=== PATIENT | male | born 1995 | race Caucasian/White ===

== ENCOUNTER 2024-01-09 14:26 | Outpatient (REF) | payer OTHER, SELFPAY ==
[2024-01-09 17:33] LABS: MANUAL DIFF FLAG NO
[2024-01-09 17:39] LABS: Basophils Percent Auto 0.3 % (0-2); Eosinophils Absolute Auto 0.2 X10*3/uL (0.0-0.4); Eosinophils Percent Auto 1.7 % (0-4); Hematocrit 44.7 % (42.0-52.0); Hemoglobin 15.3 g/dl (14.0-18.0); Imm Gran Abs Auto 0.04 X10*3/uL (0.00-0.03); Imm Gran Pct Auto 0.4 % (0.0-0.4); Lymphocytes Absolute Auto 1.5 X10*3/uL (1.2-4.9); Lymphocytes Percent Auto 16.5 % (20-40); Mean Corpuscular HGB Conc 34.2 g/dl (31.0-36.0); Mean Corpuscular Hemoglobin 31.2 pg (27.0-33.0); Mean Corpuscular Volume 91.2 fL (80.0-98.0); Mean Platelet Volume 11.2 fL (9.4-12.4); Monocytes Absolute Auto 0.9 X10*3/uL (0.1-1.2); Monocytes Percent Auto 9.1 % (2-11); Neutrophils Absolute Auto 6.7 x10*3/uL (2.0-8.3); Platelet Count 212 X10*3/uL (160-400); Red Cell Distribution Width 11.5 % (11.0-16.0); White Blood Count 9.3 X10*3/uL (4.8-10.8)
[2024-01-09 17:47] LABS: Appearance Urine Clear; Color Urine Yellow; Glucose Urine UA Negative (Negative); Leukocyte Esterase Urine Negative (Negative); Nitrite Urine Negative (Negative); Specific Gravity - Urine 1.015 (1.005-1.025); Urine Blood Negative (Negative); Urine Ketones Negative (Negative); Urine Protein Negative (Neg-Trace)
[2024-01-09 18:24] LABS: Alanine Aminotransferase 43 U/L (0-40); Albumin Level 4.6 g/dL (3.5-5.0); Alkaline Phosphatase 81 U/L (39-117); Anion Gap 13 (12-20); Aspartate Amino Transferase 42 U/L (5-37); Bilirubin Total 0.8 mg/dL (0.0-1.0); Blood Urea Nitrogen 17 mg/dL (9-16); C Reactive Protein 1.57 mg/dL (< or = 0.50); Calcium 9.9 mg/dL (8.4-10.2); Carbon Dioxide 27 mmol/L (22-29); Chloride 102 mmol/L (96-108); Estimated Glomerular Filt Rate > 60; Glucose Random 97 mg/dL (60-115); Iron 21 mcg/dL (45-160); Lipase 17 U/L (8-78); Percent Iron Saturation 9 % (15-50); Potassium 3.7 mmol/L (3.3-5.1); Sodium 138 mmol/L (135-145); Total Iron Binding Capacity 239 mcg/dL (228-428); Total Protein 7.6 g/dL (6.5-8.0); Unsaturated Iron Binding 218 ug/dL
[2024-01-09 18:25] LABS: Gamma Glutamyl Transpeptidase 25 U/L (11-51)
[2024-01-09 19:20] LABS: Amylase 53 U/L (28-100)
== END 2024-01-09 14:27 | disposition home or self-care (01) ==
LOC: HO.MANLDS 14:26
PROVIDERS: Visit Provider Physician Assistant
DX: R10.0 Acute abdomen (principal)
CPT/HCPCS: 36415; 80053; 81003; 82150; 82977; 83540; 83690; 85025; 86140

== ENCOUNTER 2024-07-16 11:07 | Outpatient (REF) | payer OTHER, SELFPAY ==
[2024-07-17 22:13] LABS: Follicle Stimulating Hormone 1.7 mIU/mL (1.4-12.8); Lutenizing Hormone 3.9 mIU/mL (1.5-9.3); Prolactin 7.5 ng/mL (2.0-18.0)
[2024-07-21 15:58] LABS: Testosterone, Free 76.1 pg/mL (35.0-155.0); Testosterone, Total 507 ng/dL (250-1100)
[2024-07-23 22:09] LABS: Estradiol Ultra Sensitive 23 pg/mL (< OR = 29)
[2024-07-29 22:03] LABS: Progesterone <0.1 ng/mL (< OR = 0.3)
== END 2024-07-16 11:08 | disposition home or self-care (01) ==
LOC: HO.MANLDS 11:07
PROVIDERS: Visit Provider Physician Assistant
DX: N62 Hypertrophy of breast (principal)
CPT/HCPCS: 36415; 82670; 83001; 83002; 84144; 84146; 84402; 84403